=== PATIENT | female | born 2000 | race Caucasian/White ===

== ENCOUNTER 2025-08-02 11:58 | Emergency (ER) | payer BC, SELFPAY ==
--- OUTSIDE RECORDS SUMMARY | 2025-08-02 12:00 | XMS_ITS | Clinical Summary ---
Author Organization [facility] Address [address] [place] [address] Care Team Providers Care Sider Mechanic Name Role Phone Bertha Gannon LEADERSHIP INTERN Unavailable [phone] Lidia Hernandez DO Primary Care Provider [phone] Allergies Active Allergy Reactions Criticality Noted Date Comments Crab Rash 09/24/2019 Metoclopramide Tachycardia 03/21/2025 Dumont jittery Medications CPAPIndications: RO (obstructive sleep apnea),Non-puneet rative sleep,Snoring New CPAP machine for home use at pressure: 5-16 cmw , Heated humidifier x 1 q 5 yr, Humidifier chamber x 1 q 6 mo, Full face mask x1 q 3mos, with cushion x 1 q mo, Heated tubing x 1 q 3 mo, Headgear x 1 q 6 mo, Filters: Disposable x 2 q mo non-disposable filters x1 q 6mo, Length of Need: 99 months, Frequency of use: Daily 1 Each 01/12/20 24 Active Additional Information Patient taking differently: New CPAP machine for home use at pressure: 5-16 cmw , Heated humidifier x 1 q 5 yr, Humidifier chamber x 1 q 6 mo, Full face mask x1 q 3mos, with cushion x 1 q mo, Heated tubing x 1 q 3 mo, Headgear x 1 q 6 mo, Filters: Disposable x 2 q mo non-disposable filters x1 q 6mo, Length of Need: 99 months, Frequency of use: Daily NOT USING, Reported on 04/18/2025 docusate (COLACE) 100 mg capsule Take 100 mg by mouth 2 times daily if needed. 01/26/20 Active sennosides (SENNA) 8.6 mg tablet Take 8.6 mg by mouth once daily if needed. 01/26/20 Active MULTIVITAMIN ORAL Take by mouth. Activ e aspirin-acetamin ophen-caffeine (Excedrin Migraine) 250-250-65 mgIndications:He adache syndrome Take 1 Tablet by mouth every 6 hours if needed for Headache. Max acetaminophen dose: 4000mg in 24 hrs. 30 Tablet 03/25/20 25 Active docusate 100 mg capsuleIndicatio ns:Chronic constipation Take 1 Capsule (100 mg) by mouth 2 times daily if needed for Constipation. 60 Capsule 2 03/25/20 25 Active methocarbamoL 500 mg tabletIndication s:Muscle spasm Take 1 Tablet (500 mg) by mouth four times daily. 30 Tablet 08/01/20 25 Active Hospital, Clinic, or Other Facility Administered Medication Ordered Dose Route Frequency Start Date End Date Status levonorgestrel (MIRENA) 20 mcg/24 hours (8 yrs) 52 mg intrauterine device (IUD) 1 DeviceIndications:Encounter for contraceptive management, unspecified type 1 Device IU Q 8 YEARS 09/13/2024 Active Active Problems Problem Noted Date Diagnosed Date IUD (intrauterine device) in place 09/13/2024 Overview (09/13/2024): Mirena placed 09/13/24 Type 1 von Willebrand disease 01/13/2024 Overview (05/24/2024): Brief Clinical Summary: I have been in discussions regarding bleeding action plan for patient. Per (81917), the procedural hemostasis plan for upcoming labor and delivery is as follows: 1. Upon patient arrival, please collect FVIII, VWF Ag, and VWF Act and place heme consult order and contact hematology. 2. Prior to epidural and delivery, patient will need to receive one factor infusion.Product recommended is Vonvendi. VWF Act goal is 100%. Equation used to determine factor dosage follows : 100 minus current VWF Act divided by 2. [For example: if baseline vWF Act is 32%, she should receive 34 Units/kg] 3. If able, repeat FVIII, VWF Ag, and VWF Act prior to epidural or delivery to ensure patient is at 100%, please do so. Avoid instrumental delivery (no vacuum, forceps, or scalp electrode) 4. When patient is able to start taking medications by mouth , please order TXA 1300 mg PO three times daily for seven days. Medication to start as soon as patient is able to swallow following delivery. 5. Daily BID labs @ 0700 and 1400 while patient is in hospital. 6. Avoid NSAIDs or other antiplatelet agents 7. Surgical service, please place Hem Consult ([id number]) upon admission. If patient comes in after hours for labs, please call the lab at [phone]. Please page MFM with any questions or clarifications [phone] Nicole Mcdonnell M.D. [facility] Fellow PGY-7 Pager [phone] Sleep apnea 08/15/2023 Overview (08/15/2023): History of sleep apnea she thinks diagnosed at [facility] Chlamydia infection affecting in first trimester 07/01/2023 Overview (07/01/2023): Sent Azithromycin Needs JUHI around Jul 29, 2023 Pap smear for cervical cancer screening 08/24/20 Overview (08/24/2022): 06/2022 NIL/HPV negative. Plan: Pap/HPV due 06/2027 s/p Right small finger flexo r tendon repair in zone 2, DOS: 09/25/[address] Minor Morse 10/04/2019 Prolactin increased 07/27/2019 Vitamin D deficiency 10/30/2018 Insomnia, idiopathic 10/26/2018 Acute stress reaction 10/26/2018 Depression with anxiety 10/26/2018 Constipation, acute 10/26/2018 Flexor tendon laceration of finger with open wou nd Resolved Problems Problem Noted Date Diagnosed Date Resolved Date E. coli UTI in 07/01/2023 Overview (07/01/2023): 07/01/23 Sent cephalexin, needs JUHI IUD (intrauterine device) in place 10/26/2018 06/30/2023 Overview (10/26/2018): Mirena placed 04/2018 Routine or child health check 06/30/2023 Encounters Date Type Department Care Team Description 08/01/2025 1:24 PM CDT - 08/01/2025 3:43 PM CDT Emergency [facility] [address] [place] [address] Mahendra Arana PA Muscle spasm (Primary Dx); Acute nonintractable headache, unspecified headache type Discharge Disposition: Home Self Care 08/01/2025 Travel 07/21/2025 Travel from Last 3 Months Immunizations Immunization Administration Dates Next Due COVID-19 vaccine (GT Urological-Bio NTech 30mcg/0.3mL) 12YO+ MAURICIO-SUCROSE PF, MDV 12/22/2022 DTaP 08/03/2005, 3,06/23/2001,11/22,2000 HIB PRP-T (ActHIB,Hiberix) 2000,2000 Hepatitis A (Peds) 03/03/2018,07/17/2013 Hepatitis B (Peds) 12/13/2001,2000, 000 Hepatitis B, Unspecified 12/13/2001 Human Papilloma Virus Vaccine 07/26/2016, 015,07/17/2013 INFLUENZA, IIV3 PF (AGE >= 6 MO) 10/19/2024 Inactivated Polio Vaccine 08/03/2005,08/2001,2000,09/12 Influenza A (H1N1), Inactivated 01/19/2010 Influenza Virus, Unspecified 01/19/2010 Influenza, IIV4 08/15/2023,12/22/2022 Influenza, IIV4 (=>6mos) MDV 07/26/2016,07/17/20 15 MENINGOCOCCAL VACCINE 2 VIAL 2MO-55YO (MENVEO) 07/17/2013 MMR 08/03/2005,12/13/2001 Meningococcal Vaccine (Menactra) 07/26/2016 Pneumococcal conj 13-Valent (Prevnar 13) 2000 Pneumococcal conj 7-Valent (Prevnar 7) 0 Tdap 09/23/2019,07/17/2013 Varicella Vaccine 08/03/2005,12/13/2001 Family History Medical History Relation Name Comments Alcoholism Father Hyperlipidemia Father Hypertension Father Depression Half-Brother 1 Learning disabilities Half-Brother 1 Learning disabilities Half-Brother 2 Learning disabilities Half-Brother 3 Hypertension Maternal Grandfather Diabetes Maternal Grandmother Depression Mother Cancer-breast Paternal Aunt Good Health Paternal Grandfather Cancer-colon No Family History Cancer-ovarian No Family History Cancer-prostate No Family History Thyroid Disease No Family History Relation Name Status Comments Father Alive Half-Brother 1 Alive Half-Brother 2 Alive Half-Brother 3 Alive Maternal Grandfather Alive Maternal Grandmother Alive Mother Alive Paternal Aunt Paternal Grandfather Paternal Grandmother Alive Social History Tobacco Use Types Packs/Day Years Used Date Smoking Tobacco: Former Cigarettes Passive Smoke Exposure: Never Smokeless Tobacco: Never Tobacco Cessation:Counseling Given: Not Answered Alcohol Use Standard Drinks/Week Comments Not Currently 0 (1 standard drink = 0.6 oz pur e alcohol) occasional PHQ-2 Answer Date Recorded PHQ-2 TOTAL SCORE 0 02/05/2025 Social Connections Answer Date Recorded Do you often feel lonely or isolated from those around you? 0 07/21/2025 Financial Resource Strain Answer Date R ecorded Difficulty of Paying Living Expenses 3 07/21/2025 Difficulty of Paying Living Expenses Not on file 07/21/2025 Food Insecurity Answer Date Recorded Do you worry your food will run out before you are able to buy more? 1 07/21/2025 Transportation Needs Answer Date Record ed Does lack of transportation keep you from medica l appointments? 1 07/21/2025 Does lack of transportation keep you from work, meetings or getting things that you need? 1 07/21/2025 Housing Stability Answer Date Recorded What is your housing situation today? 1 07/21/2025 Interpersonal Safety Answer Date Record ed Are you being hit, kicked, p ushed or yelled at (see row info)? No 08/01/2025 Interpersonal Safety Abuse 12 - 18 Not on file 08/01/2025 Interpersonal Safety Ambulatory Vulnerability No t on file 08/01/2025 Utilities Answer Date Recorded Do you have trouble paying f or utilities (for example, heat, electricity, water, phone)? 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 Not on file Not on file Not on file Obstetrics History Para Term AB IAB SAB Ectopic Multiple Livin g Live Births 1 0 0 0 0 0 0 0 0 0 0 Date Outcome GA Total Labor Labor/2nd/3rd Weight Sex Type Anes PTL Kelle A1 A5 Name Clin Last Filed Vital Signs Vital Sign Reading Time Taken Comments Blood Pressure 128/82 08/01/2025 2:48 PM CDT Pulse 76 08/01/2025 3:10 PM CDT Temperature 37.8 C (100.1 F) 08/01/2025 1:31 PM CDT Respiratory Rate 16 08/01/2025 1:31 PM CDT Oxygen Saturation 98% 08/01/2025 3:10 PM CDT Inhaled Oxygen Concentration - - Weight 64.9 kg (143 lb) 08/01/2025 1:31 PM CDT Height 154.9 cm (5' 1) 08/01/2025 1:31 PM CDT Body Mass Index 27.02 08/01/2025 1:31 PM CDT Plan of Treatment Upcoming Encounters Date Type Department Care Team (Late st Contact Info) Description 08/14/2025 10:35 AM CDT Office Visit [facility] [address] [place] [address] Lidia Hernandez, DO [address] [place] [address] 10/21/2025 9:40 AM TAVERN OPERATOR Office Visit [facility] [id number] [place] [address] [place] [address] [place] [address] 04/18/2026 10:30 AM CDT Office Visit [facility] [id number] [place] [address] [place] [address] [place] [address] Health Maintenance Due Date Last Done Comments COVID-19 vaccine series (2024- season) 2025 12/22/2022 Influenza Vaccine (#1) 2025 , 08/15/2023, 12/22/2022, Additional history exists BMI (ht and wt on same day) for age 18+ 10/19/2025 10/19/2024, 05/24/2024, 12/22/2022, Additional history exists Depression screening for age 12+ 02/05/2026 02/05/2025, 07/14/2023, 07/06/2023, Additional history exists Pap test for age 21-65 06/29/2027 06/29/2022, 2021 Tetanus booster 09/23/2029 09/23/2019, 07/17/2013 RSV vaccine for adults or (1 - 1-dose 75+ series) 2075 Pneumococcal series for age 6-49 Aged Out 2000, 2000 No longer eligibl e based on patient's age to complete this topic Hepatitis B series for 19+ Completed 12/13, 12/13/2001, 2000, Additional history exists HPV series for age 9-45 Completed 07/26/20 16, 07/17/2015, 07/17/2013 HIV for age 15-65 Completed 05/24/2024, , 06/29/2022 Hepatitis C screening for age 18-79 Completed 05/24/2024, 06/30/2023, 06/29/2022 Procedures Procedure Name Priority Date/Time Associated Diagnosis Comments TSH STAT 08/01/2025 2:41 PM CDT ANTI HIV 1/2 Routine 05/24/2024 2:06 PM CDT Screen for STD (sexually transmitted disease) ANTI HCV Routine 05/24/2024 2:06 PM CDT Encounter for hepatitis C screening test for low risk patient URBAN ANTHROPOLOGIST THIN PREP PAP SCREEN IMAGED Routine 06/29/2022 3:40 PM CDT Screening for cervical cancer from Last 3 Months or Most Recently Relevant to Health Maintenance Results * TSH (08/01/2025 2:41 PM CDT) TSH 0.63 0.27 - 4.20 uIU/mL 08/01/2025 3:25 PM CDT [facility] Blood BLOOD SPECIMEN / Unknown Venipuncture / Unknown 08/01/2025 2:41 PM CDT 08/01/2025 2:45 PM CDT Narrative [facility] - 08/01/2025 3:25 PM CDT In Adults, TSH values between 5.00 and 10.00 uIU/ml do not necessarily indicate the presence of Hypothyroidism. Correlation with clinical findings such as presence of goiter and/or Thyroperoxidase (TPO) Antibody may be helpful. For more information please refer to JERRY 2004; 291: 228-238. us Mahendra ELKINS CHEMISTRY Fin al Result [facility] [address] [place] [address] * ANTI HCV (05/24/2024 2:06 PM CDT) HEPATITIS C ANTIBODY Non-Reacti ve Non-React veronica 05/25/2024 2:46 PM CDT [facility] Comment:Please note, per www .CDC.gov: If a patient is known to be at high risk of HCV infection, or is symptomatic, and the physician's suspicion of HCV infection is high, HCV RNA testing is often employed and is of diagnostic value, even after an initial negative anti-HCV test result. Blood BLOOD SPECIMEN / Unknown Venipuncture / Unknown 05/24/2024 2:06 PM CDT 05/24/2024 2:10 PM CDT us Grecia Gaines DO SEND OUTS Final Result Performing Organization Address City/[facility]/ZIP Co de Phone Number [facility] [address] [place] [address], [place] * ANTI HIV 1/2 (05/24/2024 2:06 PM CDT) HIV-1/HIV-2 SCREEN Non-Reacti ve Non-Reacti ve 05/25/2024 2:08 PM CDT [facility] Comment:HIV-1 p24 and HIV-1/ HIV-2 Ab Not Detected. Blood BLOOD SPECIMEN / Unknown Venipuncture / Unknown 05/24/2024 2:06 PM CDT 05/24/2024 2:10 PM CDT Grecia Gaines DO SEND OUTS Final Result Performing Organization Address [facility] Co de Phone Number [facility] [address] [place] [address], [place] * URBAN ANTHROPOLOGIST THIN PREP PAP SCREEN IMAGED (06/29/2022 3:40 PM CDT) Case Report Gynecologic Cytology Report Case: [id number] Authorizing Provider: Chantelle Mack CNM Collected: 06/29/2022 1540 Ordering Location: [facility] Received: 06/29/2022 1540 Clinic First Screen: Italia Yeboah Specimen: URBAN ANTHROPOLOGIST ThinPrep Vial Screening, Cervical 07/13/2022 1:55 PM CDT [facility] INTERPRETATION /RESULT NEGATIVE FOR INTRAEPITHELIAL LESION OR MALIGNANCY (NIL) (none) 07/13/2022 1:55 PM CDT [facility] at 1355 CDT ORGANISM(S) Shift in alissa suggestive of bacterial vaginosis 07/13/2022 1:55 PM CDT [facility] SPECIMEN ADEQUACY Satisfactory for evaluation Endocervical component present 07/13/2022 1:55 PM CDT [facility] HPV REQUEST HPV and PAP 07/13/2022 1:55 PM CDT [facility] Date of LMP 06/19/2022 07/13/2022 1:55 PM CDT [facility] Last Pap Date n/a 07/13/2022 1:55 PM CDT [facility] Last Pap Result First Pap/Unknown 07/13/2022 1:55 PM CDT [facility] Abnormal Pap or [place] Bx in last 5 years No 07/13/2022 1:55 PM CDT [facility] Menstrual Status Irregular Periods 07/13/2022 1:55 PM CDT [facility] [place] Bx Done Today No 07/13/2022 1:55 PM CDT [facility] Additional Information None given 07/13/2022 1:55 PM CDT [facility] Comment: Cytology is screened at [facility] - [address], [place] [address] and [facility] - [address], [place] [address] and [facility] - [address] [place] [address] Interpreted at [facility] - [address], [place] [address] Automated Review Failed 07/13/2022 1:55 PM CDT [facility] Comment:Processing failed, m anual screening required. ThinPrep Imaging System, [employer] ANCILLARY TESTING URBAN ANTHROPOLOGIST HPV Ordered, Please see separate report 07/13/2022 1:55 PM CDT [facility] Note The pap test is a screening technique, not a diagnostic procedure. It is used primarily to screen for squamous cancers and precursor lesions. Published studies have shown that it is subject to both false negative and false positive results. The pap test should not be used as the sole means to diagnose or exclude pre-malignant and malignant lesions. 07/13/2022 1:55 PM CDT [facility] Other (Cervical) Non-Blood / Unknown 06/29/2022 3:40 PM CDT 06/29/2022 3:40 PM CDT Chantelle Sarah LIAO PATHOLOGY/CYTOLOGY Final R esult [facility] [address] [place] [address], from Last 3 Months or Most Recently Relevant to Health Maintenance Insurance [address] [id number] [place] [address] [facility] [id number] [place] [address] [facility] Advance Directives * Full Code (Latest Code Status on File) Date Activated Date Inactivated Comments 09/25/2019 11:45 AM 09/25/2019 5:20 PM Care Teams Sider Mechanic Relationship Specialty Start Date End Date Lidia Hernandez DO [address] [place] [address] PCP - General Family Practice 06/28/25 Bertha Gannon NP Nurse Practitioner - Family 01/12/24
[2025-08-02 12:04] VITALS: BP 124/86; PULSE 87; RESP 18; TEMP 37.2; O2SAT 98; BMI 27.0
--- NOTE | 2025-08-02 12:29 | CRLHL7_ITS ---
For Patients: As a result of the Century Cures Act, medical imaging exams and procedure reports are released immediately into your electronic medical record. You may view this report before your referring provider. If you have questions, please contact your health care provider. INDICATION: Headache TECHNIQUE: CT head without contrast. COMPARISON: None. FINDINGS: CSF spaces: Within normal limits for age. Brain parenchyma and extra-axial spaces: The arriaga-white differentiation is normal. No sign of mass, hemorrhage, or midline shift. No extra-axial fluid collection. Skull base and calvarium: The visualized paranasal sinuses and mastoid air cells demonstrate no acute or significant findings. The visualized orbits are grossly unremarkable. No skull fractures. IMPRESSION: Unremarkable noncontrast head CT. Please note that all CT scans at this facility use dose modulation, iterative reconstruction, and/or weight-based dosing when appropriate to reduce radiation dose to as low as reasonably achievable. Dictated by Bailey Kee MD @ 08/02/2025 2:41:29 PM (Electronically Signed)
--- OUTSIDE RECORDS SUMMARY | 2025-08-02 12:40 | XMS_ITS | Clinical Summary ---
Author Organization [facility] Address [address] [place] [address] Care Team Providers Care Staff Interpreter Name Role Phone Unavailable Primary Care Provider Unavailabl e Source Comments Patient records contain information from all sites at [facility]. For routine questions regarding patient records, call [phone] during business hours, M-F 8:00 AM - 5:00 PM Central Time. Record requests for emergency care only can be directed to [phone] at any time.[facility] Allergies Active Allergy Reactions Criticality Noted Date Comments Crab Rash 09/24/2019 Medications multivitamin/mi neral-prenatalc ( Vitamin) tablet tablet Take 1 tablet by mouth daily. 06/30/2023 Active hydrOXYzine (ATARAX) 50 mg tablet Take 50 mg by mouth every 8 (eight) hours as needed. 06/30/2023 Active ondansetron (ZOFRAN) 4 mg tablet Take 4-8 mg by mouth every 8 (eight) hours as needed for nausea or vomiting. 07/20/2023 Active pyridoxine, vitamin B6, (VITAMIN B6) 25 mg tablet Take 25 mg by mouth daily. 07/20/2023 Active diphenhydrAMINE (BENADRYL) 25 mg capsule Take 25-50 mg by mouth at bedtime as needed. 07/20/2023 Active acetaminophen (TYLENOL) 500 mg capsule Take 2 capsules (1,000 mg total) by mouth every 6 (six) hours as needed for pain. 01/26/2024 Active docusate sodium (COLACE) 100 mg capsule Take 1 capsule (100 mg total) by mouth 2 (two) times a day as needed for constipation. 01/26/2024 Active sennosides (senna) 8.6 mg tablet Take 1 tablet (8.6 mg total) by mouth at bedtime as needed for constipation. 01/26/2024 Active lidocaine (SALONPAS) 4 % adhesive patch,medicated Place 1 patch on the skin daily. Remove after 12hrs. 01/26/2024 Active witch Estephania (TUCKS) 50 % pad Apply to the affected rectal area by patting up to 6 times daily or after each bowel movement. 01/26/2024 Active Active Problems Patient Care Coordination No te Formatting of this note migh t be different from the original. PATIENT SUMMARY: Type 1 Von Willebrand Disease CHRONIC DISEASE MANAGEMENT: Please contact the [facility] ([phone]) prior to any invasive procedure. ACTION PLAN: Please refer to Bleeding Disorder Action Plan for management of bleeding concerns. Problem Noted Date Diagnosed Date Delivery Vaginal Normal Spontaneous 01/23/2024 Overview (01/25/2024): The patient was admitted to the [facility][1] for induction of labor. Her was complicated by gestational hypertension, depression, anxiety, Von Willebrand Disease. Her labor course was induced with vaginal cytotec, Cook catheter, AROM and pitocin, utilizing epidural anesthesia for pain management. Pt was medicated with Vonvendi x 3 doses per recommendation by Hematology. Complications of labor included meconium stained fluid. Pt was also medicated with TXA 1300 mg PO immediately following delivery. She had a , delivering a liveborn male. Gestational age: 37w4d. occurred: 01/24/2024 11:33 PM Perineal lacerations or episiotomy: Labial laceration Lacerations were repaired with: 4-0 Vicryl - 2 interrupted stitches for maternal comfort Contraceptive methods administered during the delivery: None Both mother and baby were in stable condition at the conclusion of the procedure. When the patient met appropriate criteria, she was transferred to the floor. She received her care at [facility]. Von Willebrand Disease Type 1 01/13/2024 Overview (01/13/2024): Brief Clinical Summary: I have been in discussions regarding bleeding action plan for patient. Per ([id number]), the procedural hemostasis plan for upcoming labor [...] 7. Surgical service, please place Hem Consult ([id number]) upon admission. If patient comes in after hours for labs, please call the lab at [phone]. Please page MFM with any questions or clarifications [phone] Nicole Mcdonnell M.D. [facility] Fellow PGY-7 Pager [phone] Hypertension Gestational 01/12/2024 Overview (01/12/2024): Clinic blood pressures: 148/75, 129/90, 133/82 Thrombocytopenia 10/20/2023 Overview (12/14/2023): Plts 77 on 10/17/2023. Peripheral smear showed thrombocytopenia with normal appearing platelets. 10/26/2023: platelets normalized to 232. 11/23/2023: 182. Will recheck CBC at 36 weeks to confirm stability. Laceration Intrinsic Muscle Fascia And Tendon Right Little Finger At Wrist And Hand Level Sequela 08/31/2023 Care And Lactating 08/31/2023 Overview (01/04/2024): OB ed complete. CF and SMA carrier testing were normal. Anatomy US incomplete, but follow up at 24 weeks was normal. Due to likely Von Willebrands disease and need for tertiary care at the time of delivery, we will refer her to OB in [place] for delivery planning and coordination of care. She can continue to be seen in [place] for OB follow-up as OB in [place] deems appropriate. Cervicitis Chlamydia 08/31/2023 Overview (12/15/2023): Diagnosed on 06/30/2023, both she and her partner were treated. JUHI performed in mid August and was negative. Will need test of reinfection 3 months after treatment, in September of 2023, but JUHI was performed less than a month prior, so TOR was performed on 12/14/2023 and was negative. Sleep Apnea Unspecified 08/15/2023 Overview (10/26/2023): History of sleep apnea she thinks diagnosed at [facility]. Sleep study was ordered at [facility] by Dr. Huff. She had a Sleep Study at [facility] 10/04/2023, but she is not scheduled to follow up on the results until the end of December 2023. She is on a wait list to get in sooner if there are cancellations. Other Von Willebrand Disease 07/27/2019 Overview (01/04/2024): Per Dr. Huff's note, in 2018 this was worked up at [facility] due to heavy menstrual bleeding and found to have VonWillibrand Ag 45% (low), Ristocetin Cofactor of 35% (low), Factor VIII 70%. -She saw hematology at [facility] for this on 08/24/2023, and they ordered repeat von Willebrand testing. Von Willebrand factor activity was again low at 42 and von Willebrand factor antigen was low at 50. Factor 8 activity was normal. Per Hematology: Based on her bleeding history and the previous vW factor testing, she likely has type 1 von Willebrand disease. However, prior to building a treatment plan, we would like to repeat her factor levels to try to solidify what her baseline levels are at this time. We will provide additional guidance once the levels return. In brief, we recommend coordinating with obstetrics for a planned induction with VWF concentrate infused peripartum to ensure levels reach 100% prior to epidural anesthesia. Pending on the trend of her levels, she may require ddAVP after delivery and after the cord has been clamped. We will also recommend that her have levels checked as well. We will plan scheduled induction with delivery in [place] due to this. Will will refer her to [place] [facility] to establish care and determine delivery planning. Order for this was placed. She can continue to follow up in [place] as needed for OB care as [place] deems appropriate. Deficiency Vitamin D 10/30/2018 Chronic Insomnia Disorder 10/26/2018 Constipation 10/26/2018 Depression Anxiety 10/26/2018 Overview (12/14/2023): Using hydroxyzine as needed for this. Has used this 4 times since June. PHQ-9 was 2 when last checked on 08/19/2023, indicating well managed depression. KARINA-7 score was 10 on 09/21/2023, and this improved ot 7 on 11/23/2023. She reports better symptom management recently. Resolved Problems Problem Noted Date Diagnosed Date Resolved Date Bleeding Vaginal G reater Than 22 Week 01/04/2024 01/24/2024 Overview (01/04/2024): Occurred yesterday, very light, no evidence of bleeding on exam today. Vaginitis panel and UA/UCx sent to evaluate this further. Pain Back From 12/14/2023 Overview (01/04/2024): Due to sacroiliitis, support belt was provided. She was also given a handout with stretching exercises to do. She was encouraged to do these at least once a day. Her symptoms have improved and are manageable at this time. Other Maternal Infectious An d Parasitic Diseases Complicating First Trimester 07/01/2023 08/31/2023 Overview (08/31/2023): Sent Azithromycin Needs JUHI around Jul 29, 2023 Urinary Tract Infection Site Not Specified 07/01/2023 03/09/2024 Overview (09/21/2023): Treated with cephalexin, multiple urine cultures have shown persistent e.coli 50-100,000 colonies per HPF. Cath specimen sent and was negative. Encounters Date Type Department Care Team Description 05/03/2025 Clinical Communication Division of Hematology in [place], [place] [address] [place] [address] Madonna Charles R.N. Follow-up from Last 3 Months Immunizations Immunization Administration Dates Next Due 4vHPV (discontinued) 07/26/2016,07/17/2015,07/17 DTaP (Infanrix, Tripedia) 08/03/2005,,06/23/2001,2000,2000 H1N1 All Forms 01/19/2010 HepA Pediatric/Adolescent 03/03/2018,07/17/2013 HepB Pediatric/Adolescent 12/13/2001,2000, 2000 HepB, Unspecified 12/13/2001 Hib (PRP-T) (ACTHIB, HIBERIX) 2000, 000 IPV 08/03/2005, 1,2000,1999 Influenza, Injectable, Quadrivalent 07/26/2016,0 07/17/2015 Influenza, Unspecified 01/19/2010 MCV4 (Menactra)(Discontinued) 07/26/2016 MCV4 (Menveo) 07/17/2013 MMR 08/03/2005,12/13/2001 PCV13 2000 PCV7 (discontinued) 2000 Tdap 09/23/2019,07/17/2013 A[facility]A 08/03/2005,12/13/2001 influenza vaccine quad (FLUZONE/FLUARIX) (6 months and older)(PF) 08/15/2023,12/22/2022 Family History Medical History Relation Name Comments Hyperlipidemia Father Restless legs syndrome Father High cholesterol Maternal Grandfather Diabetes Maternal Grandmother Depression Mother Mental illness Mother Migraines Mother Polycystic ovary syndrome Mother Alzheimers dementia.. Paternal Grandmother Relation Name Status Comments Father Alive Maternal Grandfather Alive Maternal Grandmother Alive Mother Alive Paternal Grandfather Paternal Grandmother Alive Social History Tobacco Use Types Packs/Day Years Used Date Smoking Tobacco: Former Cigarettes Smokeless Tobacco: Never Tobacco Cessation:Counseling Given: Not Answered Alcohol Use Standard Drinks/Week Comments Not Currently 0 (1 standard drink = 0.6 oz pur e alcohol) [facility] Utilities Answer Date Recorded In the past 12 months has th e electric, gas, oil, or water company threatened to shut off services in your home? Yes 12/08/2023 Hunger Vital Sign Answer Date Recorded Within the past 12 months, y ou worried that your food would run out before you got the money to buy more. Often true Within the past 12 months, t he food you bought just didn't last and you didn't have money to get more. Sometimes true PRAPARE - Transportation Answer Date Re corded In the past 12 months, has l ack of transportation kept you from medical appointments or from getting medications? No 11/15 In the past 12 months, has l ack of transportation kept you from meetings, work, or from getting things needed for daily living? No 12/08/2023 Depression Answer Date Recor ded PHQ-9 Total Score (max 27) 7 11/23 Housing Stability Answer Date Recorded What is your living situation today? Patient dec lined 12/08/2023 Education Answer Date Recorded What is the highest level of school you have completed or the highest degree you have received? Some college, no degree 08/19/2023 Comments No Sex and Gender Information Value Date Recorded Sex Assigned at Female 01/09/2024 7:44 PM [employer] Legal Sex Female 9:23 AM [employer] WORKER Gender Identity Female 01/09/2024 7:44 PM [employer] WORKER Sexual Orientation Straight 01/09/2024 7: 44 PM [employer] SERV[employer] WORKER Last Filed Vital Signs Vital Sign Reading Time Taken Comments Blood Pressure 124/76 02/02/2024 1:57 PM CDT Pulse 77 02/02/2024 1:57 PM CDT Temperature 36.3 C (97.3 F) 02/02/2024 1:57 PM CDT Respiratory Rate 16 02/02/2024 1:57 PM CDT Oxygen Saturation 99% 02/02/2024 1:57 PM CDT Inhaled Oxygen Concentration - - Weight 70 kg (154 lb 5.2 oz) 02/02/2024 1:57 PM CDT Height 155 cm (5' 1.02) 01/23/2024 8:22 AM CDT Body Mass Index 29.14 01/23/2024 8:22 AM CDT Plan of Treatment Health Maintenance Due Date Last Done Comments Cervical/Vaginal Cancer Screening 2000 HIV Screening 2000 Hepatitis C Screening 2000 Depression Screening (Annual PHQ-2) 11/14/2024 COVID-19 Vaccine ( season) 2025 12/22/2022 Influenza Vaccine (#1) 2025 , 08/15/2023, 12/22/2022, Additional history exists DTaP,Tdap,and Td Vaccines (8 - Td or Tdap) 09/23/2029 09/23/2019, 07/17/2013, 08/03/2005, Additional history exists Pneumococcal vaccine (0-49 years) Aged Out 2000, 2000 No longer eligibl e based on patient's age to complete this topic Hepatitis B Vaccines Completed 12/13/2001, 12/13/2001, 2000, Additional history exists IPV Vaccines Completed 08/03/2005, 06/14, 2000, Additional history exists Varicella Vaccines Completed 08/03/2005, 12/13/2001 HPV Vaccines Completed 07/26/2016, 01/2015, 07/17/2013 Hepatitis B Screening Discontinued 06/29/2022 Chlamydia and Gonorrhea Screening Discontinued 12/14/2023, 08/31/2023 Procedures Procedure Name Priority Date/Time Associated Diagnosis Comments CHLAMYDIA/GONORRHOE AE AMPLIFIED RNA Routine 12/14/2023 12:20 PM [employer] WORKER Cervicitis Chlamydia from Last 3 Months or Most Recently Relevant to Health Maintenance Results * Chlamydia / Gonorrhoeae Amplified RNA (12/14/2023 12:20 PM SUPPLY SERVICE WORKER) Source Swab, Vagina 12/15/2023 12:05 AM [employer]Y SERVICE WORKER MKTO Chlamydia trachomatis amplified RNA Negative Negative 12/15/2023 12:05 AM SUPPLY SERVICE WORKER MKTO Source Swab, Vagina 12/15/2023 12:05 AM SUPPLY SERVICE WORKER MKTO Neisseria gonorrhoeae amplified RNA Negative Negative 12/15/2023 12:05 AM SUPPLY SERVICE WORKER MKTO Swab (Vagina) 12/14/2023 12: 20 PM SUPPLY SERVICE WORKER 12/14/2023 7:02 PM SUPPLY SERVICE WORKER us Suellen Esquivel M.D. LAB MICROBIOLOGY - GE NERAL ORDERABLES Final Result [facility] [address] [place] [address], [place] [facility] [address] [facility] [address] [place] [address] from Last 3 Months or Most Recently Relevant to Health Maintenance Insurance [facility] [place] [address] Advance Directives For more information, please contact: [phone] * Full Code (Latest Code Status on File) Date Activated Date Inactivated Comments 01/23/2024 8:04 AM 01/25/2024 9:48 AM Question Answer Comments Full Code: Not Discussed Due to: Not medically appropriate
[2025-08-02] MEDS: ONDANSETRON 2 MG/ML inj 4 MG IVP (12:56)
[2025-08-02 13:09] LABS: Hematocrit* 40.9 % (33.0-51.0); Hemoglobin* 14.2 gm/dL (12.0-16.0); Immature Granulocytes Pct Auto 0.5 %; Mean Corpuscular HGB Conc 35 gm/dL (32-36); Mean Corpuscular Hemoglobin 31 pg (26-34); Mean Corpuscular Volume 88 fL (80-100); RDW Coefficient of Variation % 11.8 % (11.5-15.5); Red Blood Count* 4.64 m/uL (4.00-5.20); White Blood Count* 4.34 K/uL (4.50-11.00)
[2025-08-02 13:10] LABS: Immature Granulocytes Abs Auto 0.00 K/uL (0.00-0.30); Lymphocytes Absolute Auto 1.00 K/uL (0.90-2.90); Slide Review Reflex No
[2025-08-02 13:23] LABS: Albumin* 4.2 g/dL (3.3-5.0); Chloride* 104 mmol/L (96-114); Potassium* 3.4 mmol/L (3.6-5.1); Sodium* 138 mmol/L (135-149)
[2025-08-02 13:26] LABS: Alanine Aminotransferase* 14 U/L (4-35); Alkaline Phosphatase* 59 U/L (40-150); Anion Gap 8 mEq/L (7-15); Aspartate Amino Transferase* 27 U/L (12-35); Bilirubin Total* 0.4 mg/dL (0.1-1.5); Blood Urea Nitrogen* 11 mg/dL (5-24); Calcium* 8.6 mg/dL (8.4-10.6); Carbon Dioxide* 26 mmol/L (20-32); Creatinine* 0.5 mg/dL (0.5-1.5); Est. Creatinine Clearance* 129.79; Estimated Glomerular Filt Rate 133 ml/min; Glucose* 92 mg/dL (60-115); Total Protein* 7.0 g/dL (6.0-8.3)
--- NOTE | 2025-08-02 13:37 | ED_ITS ---
HPI - General Adult General Chief complaint: Headache/Migraine Stated complaint: Headache, stiffness in neck Time Seen by Provider: 08/02/25 12:06 History of Present Illness HPI narrative: Patient is a 25-year-old woman who comes in today with a 3 day history of headache. She has seen a [facility] yesterday and treated with IV fluids and Toradol. Patient is convinced that she may have something more serious. She has a number of concerns not the least of which is meningitis although she has no stiff neck stiffness and no fever. The head is painful in the posterior occiput. There is no radicular symptoms no photophobia no visual changes. Patient has tried ulve-bik-ymehfpa agents but has not had any success. Patient presents looking for help with her pain as well as full evaluation. Related Data Home Medications ?Medication ?Instructions ?Recorded ?Confirmed methocarbamol 500 mg tablet PO 08/02/25 Allergies Allergy/AdvReac Type Severity Reaction Status Date / Time No Known Drug Allergies Allergy Verified 08/02/25 12:12 Review of Systems Status of ROS: Reports: 10 or more systems reviewed and unremarkable except as noted in History and below [facility] Social History service: No Exam Narrative: Exam Narrative: EXAM GENERAL: Patient appears comfortable and well. EYES: No scleral icterus. ENT: Tympanic membranes and oropharynx normal. THYROID: no thyroid nodules or thyromegaly. LYMPH: No supraclavicular or cervical lymphadenopathy. SKIN: Visible skin seen during exam normal or with benign process only. EXT: No dependent lower extremity pedal edema. HEART: Regular rate and rhythm with no murmurs, rubs, or gallops. LUNGS: Clear to auscultation bilaterally with no crackles or wheezes. ABD: Soft, non tender, non distended. PSYCH: Good eye contact, speech is not pressured. Const: Vital Signs, click to edit/add: Vital Signs - 24 hr 08/02/25 12:04 Temperature 99.0 F Pulse Rate [Right Pulse Oximeter] 87 Respiratory Rate 18 Blood Pressure [Ri ght Upper Arm] 124/86 Pulse Oximetry 98 Oxygen Delivery Me thod Room Air Course Course ED Course: Patient seen examined. CBC comprehensive metabolic panel head CT pending. Patient is given normal saline Toradol Zofran and Benadryl. Vital Signs Vital signs: Initial Vital Signs Temperature 99.0 F 08/02/25 12:04 Temperature Source Temporal Artery Scan 08/02/25 12:04 Pulse Rate 87 08/02/25 12:04 Pulse Rhythm Regular 08/02/25 12:04 Pulse Strength 3+ Normal 08/02/25 12:04 Respiratory Rate 18 08/02/25 12:04 Blood Pressure 124/86 08/02/25 12:04 Blood Pressure Mean 98 08/02/25 12:04 Blood Pressure Position Sitting 08/02/25 12:04 Pulse Oximetry 98 08/02/25 12:04 Oxygen Delivery Method Room Air 08/02/25 12:04 Vital Signs Temperature 99.0 F 08/02/25 12:04 Pulse Rate 87 08/02/25 12:04 Respiratory Rate 18 08/02/25 12:04 Blood Pressure 124/86 08/02/25 12:04 Pulse Oximetry 98 08/02/25 12:04 Oxygen Delivery Method Room Air 08/02/25 12:04 Temperature 99.0 F 08/02/25 12:04 Pulse Rate 87 08/02/25 12:04 Respiratory Rate 18 08/02/25 12:04 Blood Pressure 124/86 08/02/25 12:04 Pulse Oximetry 98 08/02/25 12:04 Oxygen Delivery Method Room Air 08/02/25 12:04 Medications Administered Medications: Discontinued Medications Generic Name Dose Route Start Last Admin Trade Name Freq PRN Reason Stop Dose Admin Diphenhydramine HCl 25 mg 08/02/25 12:33 08/02/25 12:52 Diphenhydramine 50 Mg/Ml Inj IVP 08/02/25 12:34 25 mg ONCE ONE Administration Sodium Chloride 1,000 mls @ 1,000 mls/hr 08/02/25 12:34 08/02/25 12:51 0.9 % Sodium Chloride 1000 Ml IV 08/02/25 13:33 1,000 mls/hr .Q1H BO Administration Ketorolac Tromethamine 30 mg 08/02/25 12:33 08/02/25 12:57 Ketorolac 30 Mg/Ml Inj IVP 08/02/25 12:34 30 mg ONCE ONE Administration Ondansetron HCl 4 mg 08/02/25 12:33 08/02/25 12:56 Ondansetron 2 Mg/Ml Inj IVP 08/02/25 12:34 4 mg ONCE ONE Administration Medical Decision Making MDM Narrative Medical decision making narrative: Patient presents with headache has been present for last several days. She had some previous evaluation treatment in [place]. We did do a CT scan and CBC comprehensive metabolic panel all normal. This time I did give her L of normal saline 25 mg of Benadryl 4 mg of Zofran and 30 mg of Toradol. She will go home and rest and follow-up with her primary physician as needed. Lab Data Labs: Lab Results 08/02/25 Range/Units 12:50 WBC 4.34 L (4.50-11.00) K/uL RBC 4.64 (4.00-5.20) m/uL Hgb 14.2 (12.0-16.0) gm/dL Hct 40.9 (33.0-51.0) % MCV 88 (80-100) fL MCH 31 (26-34) pg MCHC 35 (32-36) gm/dL RDW Coeff of Dale 11.8 (11.5-15.5) % Plt Count 172 (140-440) K/uL Neut % (Auto) 71.8 (42.0-72.0) % Lymph % (Auto) 22.4 (20-44) % [place] % (Auto) 4.4 (0.0-11.0) % Eos % (Auto) 0.9 (0.0-7.0) % Baso % (Auto) 0.0 (0.0-3.0) % Neut # (Auto) 3.10 (1.7-7.0) K/uL Lymph # (Auto) 1.00 (0.90-2.90) K/uL [place] # (Auto) 0.20 (0.00-0.90) K/UL Eos # (Auto) 0.00 (0.00-0.50) K/uL Baso # (Auto) 0.00 (0.00-0.30) K/uL Abs Immat Gran (auto) 0.00 (0.00-0.30) K/uL Imm/Tot Granulo (auto) 0.5 % Sodium 138 (135-149) mmol/L Potassium 3.4 L (3.6-5.1) mmol/L Chloride 104 (96-114) mmol/L Carbon Dioxide 26 (20-32) mmol/L Anion Gap 8 (7-15) mEq/L BUN 11 (5-24) mg/dL Creatinine 0.5 (0.5-1.5) mg/dL Estimated Creat Clear 129.79 Estimated GFR 133 ml/min Glucose 92 (60-115) mg/dL Calcium 8.6 (8.4-10.6) mg/dL Total Bilirubin 0.4 (0.1-1.5) mg/dL AST 27 (12-35) U/L ALT 14 (4-35) U/L Alkaline Phosphatase 59 (40-150) U/L Total Protein 7.0 (6.0-8.3) g/dL Albumin 4.2 (3.3-5.0) g/dL Discharge Plan Discharge Clinical Impression: Headache Patient Disposition: Home, Self-Care Condition: Stable Instructions: General Headache (ED) Additional Instructions: Rest Tylenol Motrin Follow-up with your doctor as needed. Activity Level: No Restrictions Discharge Diet: Regular Prescriptions: No Action methocarbamol 500 mg tablet PO Follow Up/Referrals: Lidia Hernandez DO [Primary Care Provider, Family Practice] Stand Alone Forms: MyHealth Info Instructions
[2025-08-02 13:55] VITALS: BP 118/79; PULSE 76; RESP 14; O2SAT 99
== END 2025-08-02 15:10 | disposition home or self-care (01) ==
PROVIDERS: Emergency Provider Internal Medicine; PCP Family Medicine
DX: R51.9 Headache, unspecified (principal)
CPT/HCPCS: 36415; 70450; 80053; 85025; 96374; 96375; 99283; 99284; J1200; J1885; J2405; J7030